=== PATIENT | female | born 1960 | race Caucasian/White ===

== ENCOUNTER → 2018-10-18 09:32 | Outpatient (CLI) | payer OTHER | END | disposition home or self-care (01) | LOC: D.HCCARDIO 09-30 09:00 | PROVIDERS: ATTEND Internal Medicine Cardiovascular Disease | DX: I20.9 Angina pectoris, unspecified (principal) ==

== ENCOUNTER 2018-11-07 06:04 | Outpatient (CLI) | payer OTHER ==
[~2018-11-07] VITALS: Ht 167.6 cm; Wt 113.2 kg
--- NOTE | ~2018-11-07 | HEMODYNAMI ---
PATIENT:STEVIE SCHUMACHER MEDICAL RECORD: [id number] : 64 LOCATION:[facility] ADMISSION DATE: 11/07/18 Generatedon:11/07/20188:11 Patient name: STEVIE SCHUMACHER Patient #: [id number] SSN: : 1960 Date of study: 11/07/2018 Page: Of Hemodynamic Procedure Report Patient Data Patient Demographics Procedure consent was obtained First Name: STEVIE Gender: Female Last Name: ENDY : 1960 Patient #: [id number] Age: 58 year(s) Race: Unknown Additional ID: [id number] Contact details [address]: [address] [place] [address] State: [place] City: [place] Zip code: [address] Admission Admission Data Admission Date: 11/07/2018 Admission Time: 6:04 Procedure Procedure Types Cath Procedure Diagnostic Procedure LHC LHC w/Coronaries Procedure Description Procedure Date Procedure Date: 11/07/2018 Procedure Start Time: 7:53 Procedure End Time: 8:09 Procedure Staff Name Function Mitchell Gold MD Performing Physician Renuka Moscoso RT Monitor Dipika Harden RN Nurse Amanda Haque RT Scrub Procedure Data Cath Procedure Fluoroscopy Diagnostic fluoroscopy Total fluoroscopy Time: 1.9 time: 1.9 min min Diagnostic fluoroscopy Total fluoroscopy dose: 876 dose: 876 mGy mGy Contrast Material Contrast Material Type Amount (ml) Isovue 370 71 Entry Location Entry Primary Successful Side Size Upsize Upsize Entry Closure Izquierdo ccessful Closure Location (Fr) 1 (Fr) 2 (Fr) Remarks Device Remarks Radial Right 6 Fr Mechanical artery Short Compression Estimated blood loss: 5 ml Diagnostic catheters Device Type Used For End Catheter Placement DIAGNOSTIC Cody 110cm 5 Multi-vessel Fr catheter ([id number]) Angiography Procedure Complications No complications Procedure Medications Medication Administration Route Dosage 0.9% NaCl I.V. 100 ml/hr Oxygen etCO2 Nasal cannula 2 l/min Lidocaine 2% added to field 20 Heparin Flush Bag added to field 2 bags (1000units/500ml NS) Radial Cocktail added to field 1 syringe (Verapamil 2mg/Nitro 400mcg/Heparin 1500units) Versed I.V. 2 mg Fentanyl I.V. 50 mcg Fentanyl I.V. 50 mcg Hemodynamics Rest Heart Rate: 86 (bpm) Pressure Samples Time Site Value (mmHg) Purpose Heart Use Rate(bpm) 7:57 LV 166/20,30 Snapshot 89 Gradients Valve Time Site Site Mean SEP/DFP Peak To Heart Use 1 2 (mmHg) (sec/min) Peak Rate (mmHg) (bpm) Aortic 7:58 LV AO 103 Snapshots Pre Cath Intra NCS Post Cath Vital Signs Time Heart Resp SPO2 etCO2 NIBP (mmHg) Rhythm Pain Sedation Rate (ipm) (%) (mmHg) Status Level (bpm) 7:41:33 84 24 97 36.9 Measuring NSR 0 (11) 10(A) , No pain 7:42:37 82 10 99 36.9 174/100(149) NSR 0 (11) 10(A) , No pain 7:47:09 86 21 99 36 162/103(139) NSR 0 (11) 10(A) , No pain 7:51:40 87 13 97 19.5 159/96(121) NSR 0 (11) 10(A) , No pain 7:56:10 85 12 97 35.4 146/86(114) NSR 0 (11) 10(A) , No pain 8:00:38 75 10 98 17.3 140/82(115) NSR 0 (11) 9(A) , No pain 8:05:02 86 10 98 21.8 138/86(102) NSR 0 (11) 10(A) , No pain 8:09:27 83 10 96 25.5 148/86(116) NSR 0 (11) 10(A) , No pain Medications Time Medication Route Dose Verified Delivered Reason Notes Ef fectiveness by by 7:41:20 0.9% NaCl I.V. 100 Mitchell Dipika used for ml/hr Asif Harden digital account director 7:41:27 Oxygen etCO2 2 l/min Mitchell Dipika used for Nasal Asif Harden procedure cannula RN 7:41:32 Lidocaine 2% added 20ml Mitchell Mitchell for local to vial Asif Gold MD anesthetic field 7:41:37 Heparin Flush added 2 bags Mitchell Mitchell used for Bag to Asif Gold MD procedure (1000units/500ml field NS) 7:41:43 Radial Cocktail added 1 Mitchell Mitchell used for (Verapamil to syringe Asif Gold MD procedure 2mg/Nitro field 400mcg/Heparin 1500units) 7:51:45 Versed I.V. 2 mg Mitchell Dipika for Asif Harden sedation RN 7:51:54 Fentanyl I.V. 50 mcg Mitchell Dipika for Asif Harden sedation RN 7:56:14 Fentanyl I.V. 50 mcg Mitchell Dipika for Asif Harden sedation thread grinder tool Log Time Note 7:32:49 Dipika Harden RN sent for patient. Start room use. 7:32:49 Time tracking: Regular hours (M-F 7:00 - 5:00) 7:32:54 Plan of Care:Hemodynamics will remain stable., Cardiac rhythm will remain stable., Comfort level will be maintained., Respiratory function will remain adequate., Patient/ family verbilizes understanding of procedure., Procedure tolerated without complication., Recovers from procedure without complications.. 7:32:59 Patient received from Pre/Post Procedure Room to CCL 2 Alert and oriented. Tansferred to table in Supine position. 7:33:01 Warm blankets applied, and shay hugger turned on for patient comfort. 7:33:01 Correct patient and procedure confirmed by team. 7:33:03 Signed procedure consent form obtained from patient. 7:33:04 ECG and BP/O2 sat monitors applied to patient. 7:36:12 Vital chart was started 7:36:13 Baseline sample Acquired. 7:36:26 Full Disclosure recording started 7:36:36 H&P Date Dictated: 11/07/2018 Greater than 30 days; new H&P dictated by physician. Or brief H&P completed.. 7:36:38 Pre-procedure instructions explained to patient. 7:36:38 Pre-op teaching completed and patient verbalized understanding. 7:36:39 Family in waiting room. 7:36:41 Patient NPO since Midnight. 7:36:43 Is the patient allergic to Iodine/contrast media? Yes. 7:36:43 Was the patient premedicated? Yes 7:36:45 Is patient on blood thinner?No 7:36:46 Patient diabetic? No. 7:36:51 Previous problem with sedation/anesthesia? No ? 7:36:53 Snore? Yes 7:36:54 Sleep apnea? No 7:36:55 Deviated septum? No 7:36:56 Opens mouth fully? Yes 7:36:57 Sticks out tongue? Yes 7:36:58 Airway obstruction? No ? 7:37:01 Dentures? No ? 7:41:20 0.9% NaCl 100 ml/hr I.V. was administered by Dipika Harden RN; used for procedure; 7:41:27 Oxygen 2 l/min etCO2 Nasal cannula was administered by Dipika Harden RN; used for procedure; 7:41:32 Lidocaine 2% 20ml vial added to field was administered by Mitchell Gold MD; for local anesthetic; 7:41:37 Heparin Flush Bag (1000units/500ml NS) 2 bags added to field was administered by Mitchell Gold MD; used for procedure; 7:41:43 Radial Cocktail (Verapamil 2mg/Nitro 400mcg/Heparin 1500units) 1 syringe added to field was administered by Mitchell Gold MD; used for procedure; 7:43:14 Pre procedure: right dorsailis pedis pulse 2+ Normal; easily identifiable; not easily obliterated 7:43:16 Pre procedure: left dorsailis pedis pulse 2+ Normal; easily identifiable; not easily obliterated 7:43:18 Patient pain scale 0/10 ?. 7:43:26 IV patent on arrival in left forearm with 0.9% NaCl at [facility]. 7:43:28 Lab results completed and on chart. 7:43:32 Right Radial & Right Groin area was prepped with chlora-prep and draped in sterile fashion 7:43:33 Alarms reviewed by R. N. 7:43:34 Sharps counted by scrub and verified by R.N. 7:51:02 Physician arrived 7:51:03 --------ALL STOP TIME OUT------ 7:51:04 Final Timeout: patient, procedure, and site verified with staff and physician. All members of the team are in agreement. 7:51:06 Right Radial & Right Groin site verified by team. 7:51:14 Maximum allowable Isovue 370 dose 300ml. Physician notified. (300ml for normal creatinines. For patients with creatinine of 1.7 or higher multiply weight(kg) x 5 divided by creatinine.) 7:51:18 Fire Safety Assessment: A--An alcohol-based skin anteseptic being used preoperatively., C--Open oxygen or nitrous oxide is being used., D--An ESU, laser, or fiber-optic light is being used. 7:51:21 Physical assessment completed. ASA score P 2 - A patient with mild systemic disease as per Mitchell Gold MD. 7:51:26 Sedation plan: IV Moderate Sedation Medication:Versed, Fentanyl 7:51:29 Use device set Radial Dx or PCI 7:51:30 ACIST Syringe (66842) opened to sterile field. 7:51:31 Medline Cath Pack ([id number]) opened to sterile field. 7:51:31 Bag Decanter (2002S) opened to sterile field. 7:51:32 DIAGNOSTIC WIRE .035 260cm J wire (115859) opened to sterile field. 7:51:32 ACIST Hand Control (84634) opened to sterile field. 7:51:32 ACIST Manifold (61590) opened to sterile field. 7:51:33 Tegaderm 4 x 4 (1626W) opened to sterile field. 7:51:33 MBrace Wrist Support ([id number]) opened to sterile field. 7:51:34 NEEDLE Cook 21G 4cm Radial (Q38419) opened to sterile field. 7:51:35 SHEATH 6FR Slender (15-3128) opened to sterile field. 7:51:45 Versed 2 mg I.V. was administered by Dipika Harden RN; for sedation; 7:51:54 Fentanyl 50 mcg I.V. was administered by Dipika Harden RN; for sedation; 7:53:42 Procedure started. 7:53:48 Local anesthetic to right radial artery with Lidocaine 2% by Mitchell Gold MD.INITIAL ACCESS ONLY 7:53:57 A 6 Fr Short sheath was inserted into the Right Radial artery 7:55:15 A DIAGNOSTIC Cody 110cm 5 Fr catheter ([id number]) was advanced over the wire and used for Multi-vessel Angiography. 7:55:39 Baseline sample Acquired. 7:55:46 Rhythm: sinus rhythm 7:56:14 Fentanyl 50 mcg I.V. was administered by Dipika Harden RN; for sedation; 7:57:41 LV hemodynamics recorded. 7:57:42 LV gram done using YANES 7:57:45 Injector settings: Ml/sec: 5, Volume: 15, 7:58:03 EF : 60 % 7:58:49 LCA angiography performed. 7:58:52 Injector settings: Ml/sec: 3, Volume: 6, 8:03:12 RCA angiography performed. 8:03:15 Injector settings: Ml/sec: 3, Volume: 6, 8:03:39 Catheter removed. 8:03:53 TR BAND Standard ([id number]) opened to sterile field. 8:03:59 Sheath removed intact; hemostasis achieved with Mechanical Compression to the Right Radial artery. 8:04:04 Procedure ended.(Physican Out) 8:08:33 Fluoroscopy time 01.90 minutes. 8:08:37 Fluoroscopy dose: 876 mGy 8:08:37 Flurop Dose total: 876 8:08:43 Contrast amount:Isovue 370 71ml. 8:08:45 Sharps counted by scrub and verified by R.N. 8:08:45 Insertion/operative site no bleeding no hematoma. 8:08:48 TR band inflated with 10cc of air. 8:08:53 Post right radial artery:stable 8:08:55 Post Procedure Pulses reassessed and unchanged 8:08:57 Post procedure rhythm: unchanged. 8:08:59 Estimated blood loss: 5 ml 8:09:12 Post procedure instruction explained to patient.Patient verbalizes understanding. 8:09:13 Patient needs reinforcement of post procedure teaching. 8:09:18 Procedure and supply charges have been captured, reviewed, submitted and are correct. 8:09:22 Procedure Complication : No complications 8:09:24 Vital chart was stopped 8:09:28 See physician's report for complete and final results. 8:09:31 Report given to Pre/Post Procedure Room. 8:09:33 Patient transfered to Pre/Post Procedure Room with Stretcher. 8:09:35 Procedure ended. 8:09:35 Full Disclosure recording stopped 8:09:39 End room use (Document Last) Device Usage Item Name Manufacture Quantity Catalog Hospital Part Current Minimal Lot# / Number Charge Number Stock Stock Serial# Code ACIST Acist 1 87948 368805 181438 [id number] 20 Syringe Medical (59573) Systems Inc Medline Medline 1 [id number] 033524 21387 437625 5 Cath Pack ([id number]) Bag Microtek 1 2001S 717126 38577 491560 5 Decanter Medical Inc. (2001S) DIAGNOSTIC [facility] 1 060453 494483 614767 627966 30 WIRE .035 260cm J wire (647866) ACIST Hand Acist 1 56293 070569 583832 980429 5 Control Medical (33226) Systems Inc ACIST Acist 1 20758 455481 535464 805691 5 Manifold Medical (24960) Systems Inc Tegaderm 4 3M 1 1626W 590756 594295 561061 5 x 4 (1626W) MBrace Advanced 1 140-0250-00 151519 51432 763731 5 Wrist Vascular Support Dynamics (208022778) NEEDLE [employer] Medical 1 I14919 286644 366318 383900 5 21G 4cm Radial (H43054) SHEATH 6FR Terumo 1 [id number] 299268 240505 978886 5 Slender (80-1060) DIAGNOSTIC Terumo 1 40-3998 607943 829732 490668 5 Cody 110cm 5 Fr catheter (271090) TR BAND Terumo 1 HLK21-ARL 520306 599518 098999 40 Standard ([id number]) Signature Audit [place] Stage Time Signature Unsigned Intra-Procedure 11/07/2018 Renuka Moscoso 8:11:29 AM RT(R) Signatures Monitor : Renuka Moscoso RT Signature : Date : Time : [facility] [address] [place] [address]
[2018-11-07] MEDS ORDERED: PREDNISONE20 MG PO (06:33)
[2018-11-07] MEDS ORDERED: LEVOTHYROXINE50 MCG PO (06:33)
[2018-11-07 06:46] VITALS: BP 150/87; Ht 167.6 cm; Wt 113.2 kg
[2018-11-07] MEDS ORDERED: ADVAIR DISKUS 250/50 (06:51)
[2018-11-07 07:06] LABS: BASOPHILS 0.1 % (0-2); EOSINOPHILS 0.3 % (0-7); HEMATOCRIT 38.3 % (36.0-48.0); HEMOGLOBIN 12.6 g/dL (12-16); IMMATURE GRANULOCYTES 0.4 % (0-5); LYMPHOCYTES 12.4 % (15-50); MCH 27.5 pg (26.0-34.0); MCHC 32.9 g/dL (31.0-37.0); MCV 83.6 fL (80.0-100.0); MEAN PLATELET VOLUME 11.1 fL (7.4-10.4); MONOCYTES 1.6 % (2-11); NEUTROPHILS 85.2 % (40-80); PLATELET COUNT 300 10x3/uL (130-400); RBC 4.58 10x6/uL (4.00-5.40); RDW 14.6 % (11.5-14.5); WBC 7.4 10x3/uL (4.8-10.8)
[2018-11-07 07:19] LABS: ANION GAP 14.8 mmol/L (8-16); CALCIUM 9.2 mg/dL (8.5-10.1); CARBON DIOXIDE 24.5 mmol/L (21.0-32.0); POTASSIUM - SERUM 4.3 mmol/L (3.5-5.1)
[2018-11-07] MEDS ORDERED: ISOSORBIDE MONO30 M1 PO (08:20)
--- NOTE | 2018-11-07 08:50 | NUR ---
PT SLEEPING, AWAKENS EASILY TO VERBAL STIMULI. DENIES ANY C/O. VSS. TR BAND IS CDI, WRIST IMMOBILIZER IN PLACE. FINGERS WARM AND CAP REFILL IS BRISK.
--- NOTE | 2018-11-07 09:20 | NUR ---
TR BAND CDI, FINGERS WARM AND CAP REFILL IS BRISK. PT DENIES ANY C/O. VSS. FRIEND AT BEDSIDE, CALL LIGHT IN REACH.
--- NOTE | 2018-11-07 09:44 | NUR ---
ASSISTED PT ONTO BEDPAN, PT VOIDED QS. 3 CC OF AIR WEANED FROM TR BAND WITH NO BLEEDING OR HEMATOMA NOTED. FINGERS WARM AND CAP REFILL IS BRISK. VSS. RESP WITH EASE ON ROOM AIR.
--- NOTE | 2018-11-07 09:56 | NUR ---
3 CC OF AIR WEANED FROM TR BAND WITH NO BLEEDING NOTED. FINGERS WARM AND CAP REFILL IS BRISK. VSS, PT IS ALERT AND DENIES ANY C/O.
--- NOTE | 2018-11-07 09:59 | NUR ---
SANDWICH AND PO FLUIDS SERVED. PT DENIES NEEDS AT THIS TIME.
--- NOTE | 2018-11-07 10:25 | NUR ---
1015 ALL REMAINING AIR WEANED FROM TR BAND WITH NO BLEEDING NOTED. FINGERS WARM AND CAP REFILL IS BRISK. IV DC'D WITH CATH INTACT AND PT IS DRESSING FOR DC TO HOME WITH ASSIST. DC INSTRUCTIONS HAVE BEEN REVIEWED WITH PT AND BOYFRIEND WHO VERBALIZE UNDERSTANDING. IMDUR PRESCRIPTION AND MED COUNSELOR SHEET TO PATIENT.
--- NOTE | 2018-11-07 10:44 | NUR ---
1035 2X2 AND TEGADERM CDI TO CATH SITE. WRIST IMMOBILIZER IN PLACE. FINGERS WARM AND CAP REFILL IS BRISK. RADIAL PULSE PALPABLE. PT DENIES ANY NV DEFICIT TO HAND. PT ESCORTED TO PRIVATE AUTO VIA WC BY NURSE WITH BOYFRIEND DRIVING HER HOME.
== END 2018-11-07 10:35 | disposition home or self-care (01) ==
LOC: D.CATH 06:04
PROVIDERS: ATTEND Internal Medicine Cardiovascular Disease
DX: I25.119 Atherosclerotic heart disease of native coronary artery with unspecified angina pectoris (principal); Z01.812 Encounter for preprocedural laboratory examination

== ENCOUNTER 2018-12-23 08:00 | Outpatient (CLI) | payer OTHER ==
[2018-11-07 06:46] VITALS: BMI 40.2
[~2018-12-23 08:00] MED LIST: ADVAIR DISKUS 250/50; ISOSORBIDE MONO30 M1 PO; LEVOTHYROXINE50 MCG PO; PREDNISONE20 MG PO
== END 2018-12-23 23:59 | disposition home or self-care (01) ==
LOC: D.MAMMO 08:00
PROVIDERS: ATTEND Family Medicine
DX: Z12.31 Encounter for screening mammogram for malignant neoplasm of breast (principal)

== ENCOUNTER → 2019-01-08 10:40 | Outpatient (CLI) | payer OTHER ==
[2018-11-07 06:46] VITALS: BMI 40.2
== END | disposition home or self-care (01) ==
LOC: D.US 12-25 09:30
PROVIDERS: ATTEND Family Medicine
DX: R92.8 Other abnormal and inconclusive findings on diagnostic imaging of breast (principal)

== ENCOUNTER → 2019-01-17 07:18 | Outpatient (CLI) | payer OTHER ==
[2018-11-07 06:46] VITALS: BMI 40.2
== END | disposition home or self-care (01) ==
LOC: D.US 07:18
PROVIDERS: ATTEND Surgery
DX: R92.8 Other abnormal and inconclusive findings on diagnostic imaging of breast (principal)

== ENCOUNTER → 2019-08-28 07:58 | Outpatient (CLI) | payer OTHER ==
[2018-11-07 06:46] VITALS: BMI 40.2
== END | disposition home or self-care (01) ==
LOC: D.MRI 07:58
PROVIDERS: ATTEND Clinical Nurse Specialist Family Health
DX: M25.562 Pain in left knee (principal)